=== PATIENT | male | born 1950 | race Caucasian/White ===

== ENCOUNTER → 2016-05-07 | Outpatient (CLI) | payer OTHER ==
[~2016-05-07] MED LIST: ACTOS 30 MG TAB30 MG; ADULT LOW DOSE81 MG PO; ALBUTEROL INHAL17 GM IH; COREG PO; COZAAR 25 MG TA25 M1 PO; DICLOFENAC SOD50 M1 PO; FENOGLIDE40 MG PO; FLEXERIL PO; GLIPIZIDE 10 MG10 MG PO; GLUCOPHAGE1000 MG PO; GLUCOPHAGE500 MG PO; HYDROCODON-ACE1 EAC7 PO; KLOR-CON 1010 MEQ PO; LASIX 20 MG TAB20 MG PO; LASIX 40 MG TAB40 M1 PO; LISINOPRIL PO; LYRICA 50 MG50 MG PO; LYRICA 75 MG CA75 MG PO; LYRICA150 MG; LYRICA150 MG PO; MELLARIL PO; ONGLYZA2.5 MG PO; PLAVIX 75 MG TA75 M1 PO; PREDNISONE50 MG PO; THIORIDAZINE H100 MG PO; ULTRAM 50MG TAB50 MG PO; VICTOZA0.6 MG/0.1 SQ; ZOCOR 20 MG TAB20 M1 PO; ZPAK PO; [UNRECOGNIZED DRUG - OTHER] PO
== END ==
LOC: CAT 05-05 08:48
DX: I60.9 Nontraumatic subarachnoid hemorrhage, unspecified (principal)

== ENCOUNTER → 2016-09-29 | Outpatient (CLI) | payer OTHER ==
[~2016-09-29] VITALS: Ht 175.3 cm; Wt 121.1 kg
[~2016-09-29] MED LIST changes: +ALDACTONE25 MG PO; +ANTIVERT25 MG PO; +IBUPROFEN 800800 M1 PO; +NABUMETONE 500500 M1 PO; +ROBAXIN 750 MG750 M1 PO
--- NOTE | ~2016-09-29 | HPC ---
[facility] [place] [address] PAIN MANAGEMENT CONSULTATION Name: YASMIN IGLESIAS [id number] Admission: 09/29/16 Attend Phys: Richard Hyatt DO Discharge: Date of : 52 Report #: [id number] THIS REPORT FOR: //name// CC: Richard Panda MD DATE OF SERVICE: 09/30/2016 DATE OF SERVICE: 09/29/2016 CHIEF COMPLAINT: Mid back pain. HISTORY OF PRESENT ILLNESS: As you know, the patient is a 66-year-old male, who reports a longstanding history of axial back pain involving mid back area. He states he exacerbated his symptoms recently while trying to lift trashcan. He states he has trialed conservative medical therapy, rest, relaxation and stretching, but this has been ineffective. Due to lack of improvement secondary to conservative treatment, he was then referred to our clinic for evaluation. He comes today with no imaging studies. He indicates his pain at a level of 10/10 involving mainly the mid back from approximately T6 through L2 right-sided only. It appears to be in the paraspinal muscles. There is no spinous process tenderness. The patient indicates he has noted no worsening symptoms, but his pain has not improved. He has been referred to our clinic for evaluation of this ongoing back pain issue. The patient apparently has not undergone physical therapy at this juncture. The patient indicates pain is sharp, stabbing and constant, describes the pain exacerbated with activities, bending, nothing appears to improve pain. PAST MEDICAL HISTORY: 1. Hypertension. 2. Diabetes mellitus type 2. 3. History of brain injury. 4. Chronic back pain. PAST SURGICAL HISTORY: Unremarkable. SOCIAL HISTORY: The patient smokes 2 packs of tobacco per day, down from 3 packs of tobacco per day. He has done this for greater than 20 years. He denies IV or illicit drug use. Denies any chronic alcohol use. He is unemployed. IMAGING: No imaging available. ALLERGIES: THIOPENTAL, KEFLEX, LISINOPRIL, NABUMETONE. [address] [address] PAIN MANAGEMENT CONSULTATION Name: HARRISYASMIN SETH Room #: [facility].#: [id number] Admission: 09/29/16 Attend Phys: Richard Hyatt DO Discharge: Date of : 52 Report #: [id number] CURRENT MEDICATIONS: Spironolactone 25 mg once a day, furosemide 20 mg per day, meclizine 25 mg p.r.n., ibuprofen 800 mg 3 times a day, losartan 25 mg once a day, glipizide 10 mg once a day, Victoza 0.6 mg subq daily, fenofibrate 40 mg per day, carvedilol 12.5 mg twice a day, metformin 1000 mg twice a day. PHYSICAL EXAMINATION: VITAL SIGNS: Blood pressure 115/60, pulse 82, respiratory rate 16, unlabored. The patient is 97% on room air, height 5 feet 9 inches tall, weight 267 pounds, BMI calculated 39.4. GENERAL: Well developed, well nourished, well hydrated, morbidly obese, 66-year-old male, who appears his stated age. He is quite disheveled. He smells strongly of tobacco smoke. He places pain score today 10/10. HEENT: Normocephalic, atraumatic. Pupils equal, round, reactive to light. Extraocular muscles are intact. Speech is fluent for patient. EXTREMITIES: Show no clubbing, no cyanosis. There is severe staining of the fingers on the both left and right hand due to chronic cigarette exposure. MUSCULOSKELETAL: Seated straight leg raising negative. Supine straight leg raising negative. Spinous process tenderness is negative. There is palpatory tenderness over the paraspinal musculature of the mid thoracic, lower thoracic and upper lumbar area. There is no skin color changes concerning of any rash or lesions. Upper extremity strength, lower extremity strength is symmetrical, but deconditioned bilaterally. ASSESSMENT: 1. Myofascial pain. 2. Thoracolumbar strain. 3. 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 4. Chronic intractable pain. PLAN: 1. Based on today's physical exam, history the patient has provided, the description the patient uses in regards to pain as well as location of symptoms and the exacerbating factors, likely source of the patient's pain is myofascial in origin. I am unable to elicit any thoracic or lumbar radicular symptoms. There is no rash, lesions concerning of any shingles-like presentation. The distribution of the patient's pain appears to be myofascial in origin. It is following a caudad to cephalad distribution indicating more of the paraspinal muscle involvement. Given the source of the patient's initial pain while lifting a trash can, I believe this is the source of his symptoms. I do not have imaging of the thoracic spine. Given the fact that he is an extensive heavy smoker, smoking no less than 2 packs of tobacco per day. There is a strong possibility that the patient could have suffered vertebral compression fracture. They are less prevalent mails, but given his extensive smoking history There is a strong possibility. I would recommend that the patient undergo x-ray imaging of the thoracic spine to rule out any major pathology. We will have the patient undergo this x-ray imaging to determine if interventional [facility] [address] [place] [address] PAIN MANAGEMENT CONSULTATION Name: HARRISYASMIN GUTIERREZD Room #: REG [facility]#: [id number] Admission: 09/29/16 Attend Phys: Richard Hyatt DO Discharge: Date of : 52 Report #: [id number] treatments to address possible fracture might be necessary, though I do not feel this is high on the differential, I do wish to rule out any potential. 2. The patient was sent for x-ray imaging of the thoracolumbar area. The patient will undergo the imaging today. We will review the findings. If there is noted any pathology, will contact the patient. If the patient wishes to receive results, he can contact our clinic tomorrow morning and we can give him the results from the x-ray imaging and determine if interventional treatments might be necessary. 3. To address patient's myofascial pain, we will start the patient on methocarbamol 750 mg dose 1 tab p.o. t.i.d. with instructions to take only as necessary for muscle spasming. He was given this prescription today with refills if necessary. The patient was advised not to drive or operate heavy equipment while on this medication. 4. The patient was provided prescription on nabumetone 500 mg dose 1 tab p.o. t.i.d. with meals, given the patient #90 tablets. I did provide 2 refills. The patient was advised to watch for dyspepsia, worsening blood pressure, lower extremity edema with its use. 5. The patient will contact the clinic tomorrow to receive findings from his imaging studies. We will discuss that whether or not interventional treatments would be necessary based on those findings. 6. We wish to thank Dr. Panda for the opportunity to see this patient in consultation. We will keep you apprised of his response to treatment, assuming he has pathology requiring interventional treatments. If no major pathology is noted. I would recommend he use conservative treatment to address his thoracolumbar strain, which appears to be the top of the differential diagnosis today. Again, we wish to thank you for the opportunity to participate in his care. By: [id number] Richard Hyatt DO /nt
[2016-09-29 12:30] VITALS: BP 115/60
== END | disposition home or self-care (01) ==
LOC: PAIN 06:54
DX: S39.012A Strain of muscle, fascia and tendon of lower back, initial encounter (principal); G89.29 Other chronic pain; M47.815 Spondylosis without myelopathy or radiculopathy, thoracolumbar region; I10 Essential (primary) hypertension; E11.9 Type 2 diabetes mellitus without complications; J44.1 Chronic obstructive pulmonary disease with (acute) exacerbation; F17.210 Nicotine dependence, cigarettes, uncomplicated; Z88.8 Allergy status to other drugs, medicaments and biological substances; Z87.820 Personal history of traumatic brain injury